=== PATIENT | male | born 1995 | race Caucasian/White ===

== ENCOUNTER 2016-08-18 11:56 | Outpatient (CLI) | payer BC ==
[~2016-08-18] VITALS: Ht 177.8 cm; Wt 68.9 kg
[~2016-08-18 11:56] MED LIST: ONDAN4ODT PO
[2016-08-18 12:08] VITALS: BP 121/77
[2016-08-18 12:28] LABS: BASOPHILS % (AUTO) 1 % (0-10); EOSINOPHILS # (AUTO) 0.1 10^3/uL (0.0-0.3); EOSINOPHILS % (AUTO) 3 % (0-10); LYMPHOCYTES # (AUTO) 1.9 X 10^3 (1.0-4.0); LYMPHOCYTES % (AUTO) 38 % (12-44); MEAN CORPUSCULAR HEMOGLOBIN 32 PG (25-34); MEAN CORPUSCULAR HGB CONC 36 G/DL (32-36); MEAN CORPUSCULAR VOLUME 89 FL (80-99); MEAN PLATELET VOLUME 10.9 FL (7.4-10.4); MONOCYTES # (AUTO) 0.5 X 10^3 (0.0-1.0); MONOCYTES % (AUTO) 10 % (0-12); NEUTROPHILS # (AUTO) 2.4 X 10^3 (1.8-7.8); NEUTROPHILS % (AUTO) 49 % (42-75); PLATELET COUNT 166 10^3/uL (130-400); RED BLOOD COUNT 4.88 10^6/uL (4.35-5.85); RED CELL DISTRIBUTION WIDTH 12.8 % (10.0-14.5)
--- OUTSIDE RECORDS SUMMARY | 2016-08-18 15:55 | XMS REPORT | Continuity of Care Document ---
Author Author [facility] Organization [facility] Address Unknown Phone Unavailable Care Team Providers Care Cultural Anthropology Professor Name Role Phone NO, LOCAL PHYSICIAN PP Unavailable Insurance Providers Payer Name Policy Number Subscriber Name Relationship [facility] [id number] Sully Hernandez 01 Self / Same As Patient Advance Directives Directive Response Recorded Date Advance Directives N 04/01/13 8:47pm Problems No Known Problems or Medical conditions. Social History History Response Recorded Date/Time Alcohol Use Occasionally Uses 04/01/13 10 :23pm Recreational Drug Use N 04/01/13 8:47pm Recent Foreign Travel N 04/01/13 8:47pm Allergies, Adverse Reactions, Alerts Allergen Type Severity Reaction Last Updated cefazolin sodium Allergy Mild 04/01/13 Medications Medication Dose Units Route Sig Qty Days Ondansetron HCl (Zofran Oral Dissolve) 4 Mg PO Q4H 5 Response Recorded Date/Time Status not known Unknown Results No Known Relevant Diagnostic Tests, Laboratory Data and/or Discharge Summary. Encounters Encounter Location Date/Time Departed Emergency [facility] 06/02 8:34pm
== END 2016-08-18 12:32 ==
LOC: PREOP 11:56
PROVIDERS: ATTEND Surgery
DX: Z01.812 Encounter for preprocedural laboratory examination (principal); Z11.2 Encounter for screening for other bacterial diseases; K40.90 Unilateral inguinal hernia, without obstruction or gangrene, not specified as recurrent
CPT/HCPCS: 36415; 85025; 87081

== ENCOUNTER 2016-08-21 07:15 | Day surgery (SDC) | payer BC ==
[~2016-08-21] VITALS: Ht 177.8 cm; Wt 68.9 kg
[2016-08-21 07:40] VITALS: BP 122/84
[2016-08-21] MEDS ORDERED: CLINDAMYCIN 900 MG/50 ML IVPB 50 ML IV ONE (07:45)
[2016-08-21] MEDS: LACTATED RINGERS 1,000 ML IV PRN ×2 (07:50→09:48)
[2016-08-21] MEDS ORDERED: SEVOFLURANE (ULTANE) 15 ML INHAL SOLN ONE (08:15)
[2016-08-21] MEDS ORDERED: LACTATED RINGERS 1,000 ML IV ONE (08:15)
[2016-08-21] MEDS ORDERED: LIDOCAINE PF 2% 10 ML (XYLOCAINE) AMP ONE (08:15)
[2016-08-21] MEDS ORDERED: proPOfol 200 MG/20 ML (DIPRIVAN) VIAL IV ONE (08:15)
[2016-08-21] MEDS ORDERED: MIDAZOLAM 2 MG/2 ML (VERSED) VIAL ONE (08:16)
[2016-08-21] MEDS ORDERED: fentaNYL INJECTION 100 MCG/2 ML AMP ONE (08:16)
[2016-08-21] MEDS ORDERED: ROCURONIUM 50 MG/5 ML (ZEMURON) VIAL IV ONE (08:21)
[2016-08-21] MEDS ORDERED: LIDOCAINE/EPI 1%-1:100,000 (XYLOCAINE) 20ML ONE (09:02)
--- NOTE | 2016-08-21 10:11 | Progress Note-Pre Operative ---
Pre-Operative Progress Note H&P Reviewed The H&P was reviewed, patient examined and no changes noted. Date H&P Reviewed: Aug 21, 2016 Time H&P Reviewed: 09:06 Pre-Operative Diagnosis: Left inguinal hernia KAI TEJADA DO Aug 21, 2016 10:11
--- NOTE | 2016-08-21 10:12 | Progress Note-Post Operative ---
Post-Operative Progess Note Corporate Webmaster Celia Pre-Operative Diagnosis Left inguinal hernia Post-Operative Diagnosis LIH indirect with small direct component Post-Op Procedure Note Date of Procedure: Aug 21, 2016 Name of Procedure: LIH with mesh Anesthesia Type LMA Estimated blood loss (mL): scant Specimen(s) collected indirect hernia sac KAI TEJADA DO Aug 21, 2016 10:12
[2016-08-21] MEDS ORDERED: HYDR-3812 PO (10:13)
--- NOTE | 2016-08-21 10:15 | Discharge Inst-Surgical ---
Discharge Inst-Surgical Depart Medication/Instructions New, Converted or Re-Newed RX: RX Given to Pt/Family Patient Instructions Follow up Appt: Make appointment for 1 week. [phone] Instructions: No lifting greater than 20-30 pounds; for next 4 weeks No strenuous activity. May shower in 24 hours, no tub bath or soaking. Use incentive spirometer at home as directed. No Smoking Skin/Wound Care: May remove outer bandages in am. Symptoms to Report: Appetite Changes, Extremity Discoloration, Numbness/Tingling, Swelling Increased , Bleeding Excessive, Eyesight Changes, Pain Increased, Urine Color Change, Constipation(Persistent), Fever over 101 degree F, Pain/Pressure in chest, Urinating Difficulty, Cough Up/Vomit Blood, Heart Beat Irreg/Pounding, Pain/ Pressure in jaw, Vaginal Bleeding Increase, Cramps in feet or legs, Lightheadedness, Pain/Pressure in shoulder, Diarrhea(Persistent), Memory Changes Suddenly, Questions/Concerns, Weight gain consecutive days, Dizziness/ Fainting, Nausea/Vomiting, Shortness of Breath, Weight gain over 2 pounds If questions or concerns contact your physician Or seek help at emergency department. Activity Activity as Tolerated: Yes Activity Instructions: Avoid Pulling & Pushing, Avoid Stress to Incision Driving Instructions: No Driving/Refer to Dr. Greer Discharge Diet: No Restrictions Diet After 24 Hours: Clear Liquid if Nauseous If Any Problems/Questions/Issu: Contact Your Physician, Go to Emergency Room Skin/Wound Care Infection Signs and Symptoms: Increased Redness, Foul Odor of Wound, Increased Drainage, Increased Swelling, Temperature Above 101 F Stitches/[place]/Dermabond Dis: Dermabond Ice Pack: Ice On and Off Site KAI TEJADA DO Aug 21, 2016 10:15
[2016-08-21] MEDS ORDERED: ONDANSETRON 4 MG/2 ML (SDV) Z0FRAN IV PRN (10:45)
[2016-08-21] MEDS ORDERED: PROMETHAZINE INJ 25 MG/ML (PHENERGAN) AMP IV PRN (10:45)
[2016-08-21] MEDS: morphine INJ 10 MG/ML 1ML (SYR OR VIAL) IV PRN ×2 (11:00→11:05)
[2016-08-21] MEDS ORDERED: morphine INJ 10 MG/ML 1ML (SYR OR VIAL) ONE (11:02)
[2016-08-21 11:35] VITALS: BP 123/84
[2016-08-21 12:05] VITALS: BP 130/86
[2016-08-21 12:35] VITALS: BP 124/81
[2016-08-21] MEDS ORDERED: HYDROcodone/APAP 5 MG/325 MG (LORTAB) TAB PO ONE (12:40)
[2016-08-21 14:20] VITALS: BP 124/81
--- NOTE | 2016-08-22 22:38 | OPERATIVE REPORT ---
PROCEDURE PHYSICIAN: KAI RIVERO DATE OF PROCEDURE: 08/21/2016 PREOPERATIVE DIAGNOSIS: Left inguinal hernia. POSTOPERATIVE DIAGNOSIS: Left indirect inguinal hernia as well as with a small direct component. PROCEDURE: Left inguinal herniorrhaphy with mesh placement. SURGEON: Dr. Rivero BUSINESS OPERATIONS ANALYST: Dr. Yang. ANESTHESIA: LMA. BLOOD LOSS: Scant. SPECIMEN: Left hernia sac. FLUIDS: Per anesthesia. POSTOPERATIVE CONDITION: Stable. INDICATIONS FOR THE PROCEDURE: The patient is a 20-year-old male who has bulging and pain in the left inguinal region diagnosed with a left inguinal hernia. FINDINGS: The patient had a relatively large indirect left inguinal hernia sac, did not appear to have any omentum or intestine here. He also had a very small weakness in the floor of the inguinal canal, this is a direct component. PROCEDURE NOTE: After informed consent was obtained, the patient was brought to the operating room, placed on table in supine position. He was sterilely prepped and draped in normal fashion. Local lidocaine used to perform ilioinguinal nerve block as well as pubic tubercle block and then infiltrated the left inguinal region with local, then made an incision with a number 15 blade, carried down through the skin into subcutaneous tissue. Then deepened down through the subcutaneous tissue with Bovie electrocautery down to the external oblique fascia. External oblique fascia infiltrated with local, incised the external inguinal ring with Bovie electrocautery. Saw the ilioinguinal nerve, pushed this out of the way, dissect under the external oblique fascia bluntly with my finger. Then able to get around the cord and cord structures at the pubic tubercle bluntly and then placed a [place] drain, pulled in an inferolateral direction. Started looking superiorly and medially and found an indirect hernia sac. Carefully started teasing this off the cord and cord structures and grasped with hemostats and then pushing with some Ray-Becca and then using the Bovie electrocautery as well, finally completely freeing this up off of the cord and cord structures all the way down to the base. Opened it up, there is no omentum or intestine here. Twisted this down and then suture ligated with 0 Vicryl and then tied another 0 Vicryl suture and then cut the hernia sac. Passed it off the table and watch the stump retract into the abdomen, small defect in the floor the anal canal was then closed with a 0 Vicryl [id number] suture. At this point then elected to place a left side Parietex mesh, trimmed it to fit into the inguinal canal. Sutured once at the pubic tubercle and encircled the cord a precut hole and then placed the rest of the mesh up under the external oblique fascia. Internal inguinal ring was reconstruct with the mesh. The area copiously irrigated with normal saline, suctioned this out and then elected to close the actual oblique fascia there by recreating the external inguinal ring, closed with 3-0 Vicryl running suture. Then closed the Maria Elena's fascia with 3-0 Vicryl, 3 interrupted sutures. Then closed the skin with 4-0 undyed Monocryl in subcuticular fashion. There area was clean and dried, Dermabond was used and then dressings placed. The patient tolerated the procedure and transferred recovery room in stable condition. Sponge, instrument and needle counts were correct at the end of the case. Dr. Yang was there to assist in identifying anatomy and to hold retractors as well as help with suturing. Job ID: [id number] Dictated Date: 08/21/2016 11:41:39 Crm Specialist Date: 08/22/2016 22:16:15 / yang
== END 2016-08-21 14:20 | disposition home or self-care (01) ==
LOC: SDC 07:15
PROVIDERS: ATTEND Surgery
DX: K40.90 Unilateral inguinal hernia, without obstruction or gangrene, not specified as recurrent (principal)
CPT/HCPCS: 88302; 94664